=== PATIENT | male | born 1990 | race Caucasian/White ===

== ENCOUNTER → 2020-01-17 | Outpatient (CLI) | payer BC, OTHER ==
--- NOTE | 2020-01-20 12:15 | SLEEPHOME ---
DATE: 01/17/2020 ORDERED BY: SUEZTTE Alvarado Diagnostic home sleep testing was performed due to concern for the obstructive sleep apnea syndrome. Nine hours and 59 minutes of data were reviewed. There were 9 hours and 4 minutes marked as time in bed. During the interval marked time in bed, there were 166 respiratory events identified of 10 seconds in duration or greater for a respiratory event index of 18.3. The events were both mixed, central, and obstructive. Baseline pulse rate was 60. Pulse rate ranged 44 to 100. Baseline saturation was 94%. Saturations fell to 87%. Testing was performed in both the supine and non-supine positions. IMPRESSION: Abnormal home sleep testing with repetitive respiratory events and oxygen desaturations to 87% with a respiratory event index of 18.3 is consistent with the obstructive sleep apnea syndrome. Complex sleep apnea is of concern due to the frequency of central events. RECOMMENDATION: The patient should be encouraged to undergo a formal sleep evaluation. MTDD
== END ==
LOC: M SLEEP HO 08:32
PROVIDERS: ATTEND Nurse Practitioner Family
DX: R06.83 Snoring (principal)